=== PATIENT | male | born 1990 | race Hispanic/Latino ===

== ENCOUNTER 2021-11-04 20:48 | Emergency (ER) | payer SELFPAY ==
--- NOTE | 2021-11-05 04:25 | Emergency Department Report ---
ED General Adult HPI - General Chief complaint: Upper Respiratory Infection Stated complaint: HEADACHE/SINUS Time Seen by Provider: 11/05/21 04:02 Source: patient Mode of arrival: Ambulatory Limitations: No Limitations - History of Present Illness Initial comments: Patient 31-year-old male who presents for head and sinus congestion for the past 3 days. Patient states on postnasal drip that is clear. There is no fevers no chills no dizziness or lightheadedness. There is been no nausea no vomiting. Is a recurrent problem problem for this patient for the past 5 to 6 years. Patient requesting treatment for URI and med clearance to return to work. Vital signs noted patient drove self to ED patient is amatory on own power with no acute distress. - Related Data Previous Rx's Medication Instructions Recorded Last Taken Type Ibuprofen [Motrin 800 MG tab] 800 mg PO Q8HR PRN #30 tablet 11/05/21 Unknown Rx guaiFENesin [Guaifenesin] 400 mg PO Q6H PRN #20 tab 11/05/21 Unknown Rx Allergies Allergy/AdvReac Type Severity Reaction Status Date / Time No Known Allergies Allergy Unverified 11/05/21 02:40 ED Review of Systems ROS: Stated complaint: HEADACHE/SINUS Other details as noted in HPI Constitutional: denies: chills, fever Eyes: denies: eye pain, eye discharge, vision change ENT: dental pain, congestion. denies: hearing loss Respiratory: cough (Productive clear). denies: shortness of breath (Postnasal drip no wheezing no shortness of breath), wheezing Cardiovascular: denies: chest pain, palpitations Endocrine: no symptoms reported Gastrointestinal: denies: abdominal pain, nausea, vomiting, diarrhea Genitourinary: denies: urgency, dysuria Musculoskeletal: denies: back pain, joint swelling, arthralgia Skin: denies: rash, lesions Neurological: denies: headache, weakness, paresthesias Psychiatric: denies: anxiety, depression Hematological/Lymphatic: denies: easy bleeding, easy bruising ED Past Medical Hx - Medications Home Medications: Home Medications Medication Instructions Recorded Confirmed Last Taken Type Ibuprofen [Motrin 800 MG tab] 800 mg PO Q8HR PRN #30 tablet 11/05/21 Unknown Rx guaiFENesin [Guaifenesin] 400 mg PO Q6H PRN #20 tab 11/05/21 Unknown Rx ED Physical Exam - General Limitations: No Limitations General appearance: alert, in no apparent distress - Head Head exam: Present: normocephalic, normal inspection - Eye Eye exam: Present: PERRL, EOMI. Absent: conjunctival injection Pupils: Present: normal accommodation - ENT ENT exam: Present: normal exam, mucous membranes moist - Neck Neck exam: Present: normal inspection, meningismus, full ROM. Absent: tenderness, lymphadenopathy - Respiratory Respiratory exam: Present: normal lung sounds bilaterally. Absent: respiratory distress - GI/Abdominal GI/Abdominal exam: Present: soft, normal bowel sounds. Absent: distended, tenderness, guarding, rebound, rigid, bruit, hernia - Rectal Rectal exam: Present: deferred - Extremities Exam Extremities exam: Present: normal inspection, full ROM, normal capillary refill. Absent: tenderness, pedal edema - Back Exam Back exam: Present: normal inspection, full ROM. Absent: CVA tenderness (R), CVA tenderness (L) - Neurological Exam Neurological exam: Present: alert, oriented X3, CN II-XII intact, normal gait - Expanded Neurological Exam Expanded Patient oriented to: Present: person, place, time Speech: Present: fluid speech Motor strength exam: RUE: 5, LUE: 5, RLE: 5, LLE: 5 Best Eye Response (David): (4) open spontaneously Best Motor Response (Crary): (6) obeys commands Best Verbal Response (Crary): (5) oriented Crary Total: 15 ED Course Vital Signs 11/04/21 21:17 Temperature 97.8 F Pulse Rate 72 Respiratory 16 Rate Blood Pressure 144/87 O2 Sat by Pulse 97 Oximetry - Reevaluation(s) Reevaluation #1: Patient states symptoms are resolved since arrival to ED. Plan treat for URI. Patient will follow primary care doctor in 2 to 3 days. Patient currently alert oriented x3 amatory with steady gait. Lungs are clear throughout with no wheezing. There is no chest pain. No nausea or vomiting. 11/05/21 04:38 ED Medical Decision Making - Medical Decision Making Is a straightforward URI plan NSAIDs, guaifenesin, continue to hydrate. Follow- up with your primary care doctor in 2 to 3 days. Patient verbalized agreement understanding of discharge plan. Patient DC'd home in stable condition at this time. Patient is currently alert oriented x3 patient is amatory with steady gait there is no fevers no chills no nausea no vomiting no shortness of breath no wheezing or stridor. Critical care attestation.: If time is entered above; I have spent that time in minutes in the direct care of this critically ill patient, excluding procedure time. ED Disposition Clinical Impression: URI (upper respiratory infection) Qualifiers: URI type: unspecified viral URI Qualified Code(s): J06.9 - Acute upper respiratory infection, unspecified Disposition: HOME / SELF CARE / HOMELESS Is pt being admited?: No Does the pt Need Aspirin: No Condition: Stable Instructions: Upper Respiratory Infection, Adult Additional Instructions: Take medicines as prescribed, hydrate as directed. Follow-up with your doctor in 2 to 3 days. Return to emergency department should symptoms worsen. Prescriptions: guaiFENesin [Guaifenesin] 400 mg PO Q6H PRN #20 tab PRN Reason: Cough Ibuprofen [Motrin 800 MG tab] 800 mg PO Q8HR PRN #30 tablet PRN Reason: pain Referrals: JASMINE UPTON MD [Staff Physician] - 3-5 Days Forms: Work/School Release Form(ED) Time of Disposition: 04:43
[2021-11-05 05:07] VITALS: BP 146/91
== END 2021-11-05 05:43 | disposition home or self-care (01) ==
LOC: ED 20:48
DX: J06.9 Acute upper respiratory infection, unspecified (principal); Z79.899 Other long term (current) drug therapy
CPT/HCPCS: 99282